=== PATIENT | female | born 1970 | race Caucasian/White ===

== ENCOUNTER → 2021-07-10 | Day surgery (SDC) | payer BC | END | disposition home or self-care (01) | LOC: FMAMMOTONE 12:06 | PROVIDERS: ATTEND Surgery | PROC: 0HBU3ZX Excision of Left Breast, Percutaneous Approach, Diagnostic (ICD-10-PCS; principal; 2021-07-10) | DX: Z53.8 Procedure and treatment not carried out for other reasons (principal); R92.0 Mammographic microcalcification found on diagnostic imaging of breast | CPT/HCPCS: 19081 ==

== ENCOUNTER 2022-01-13 04:41 | Day surgery (SDC) | payer BC ==
[2022-01-10 12:37] VITALS: BMI 25.4
[2022-01-13] MEDS ORDERED: LIDOCAINE HCL 1%, 10 MG/ML (20ML VIAL) ONE (09:01)
[2022-01-13] MEDS ORDERED: MIDAZOLAM HCL 2 MG/2 ML SINGLE DOSE VIAL ONE (10:30)
[2022-01-13] MEDS ORDERED: PROPOFOL 20 ML ONE ×5 (10:42→13:20)
[2022-01-13] MEDS ORDERED: ceFAZolin SODIUM 1 GM VIAL IVPB ONE (10:45)
[2022-01-13] MEDS ORDERED: ACETAMINOPHEN INJECTION 100 ML IVPB ONE (12:30)
[2022-01-13] MEDS ORDERED: oxyCODONE HCL 5 MG TABLET PO PRN (13:46)
[2022-01-13] MEDS ORDERED: ONDANSETRON 4 MG/2 ML VIAL IVPUSH PRN (13:46)
[2022-01-13] MEDS ORDERED: LACTATED RINGERS SOLUTION 1,000 ML IV SCH (14:00)
[2022-01-13] MEDS ORDERED: ONDANSETRON 4 MG/2 ML VIAL ONE (16:25)
[2022-01-13] MEDS ORDERED: oxyCODONE HCL 5 MG TABLET ONE ×2 (16:25→16:31)
[2022-01-13 18:25] VITALS: TEMP 97.8
[2022-01-13 18:33] VITALS: BP 108/58; PULSE 70
== END 2022-01-13 18:00 | disposition home or self-care (01) ==
LOC: J2C 04:41 → UNDOADMIN 04:41 → JASU-SURG 04:41 → EDSTATUS 08:30 → JASU-SURG 18:00
PROVIDERS: ATTEND Plastic Surgery
PROC: 0HBV0ZZ Excision of Bilateral Breast, Open Approach (ICD-10-PCS; principal; 2022-01-13 09:30)
PROC: 0HBV0ZZ Excision of Bilateral Breast, Open Approach (ICD-10-PCS; 2022-01-13 09:30)
DX: Z85.3 Personal history of malignant neoplasm of breast (principal); N60.91 Unspecified benign mammary dysplasia of right breast
CPT/HCPCS: 19281; 76098-TC-FY; 81025; 86850; 86900; 86901; 88307-TC; 88342-TC; 93005; 93010; 94760

== ENCOUNTER 2022-03-05 04:15 | Inpatient (IN) | payer BC ==
[2022-03-04 09:04] VITALS: BMI 25.2
[2022-03-05] MEDS ORDERED: fentaNYL CITRATE 250 MCG/5 ML VIAL ONE (11:22)
[2022-03-05] MEDS ORDERED: PROPOFOL 20 ML ONE ×5 (11:22→14:36)
[2022-03-05] MEDS ORDERED: MIDAZOLAM HCL 2 MG/2 ML SINGLE DOSE VIAL ONE (11:22)
[2022-03-05] MEDS ORDERED: SUCCINYLCHOLINE CHLORIDE 200 MG/10 ML SYRINGE ONE ×2 (11:22→12:30)
[2022-03-05] MEDS ORDERED: ceFAZolin SODIUM 1 GM VIAL IVPB ONE (12:05)
[2022-03-05] MEDS ORDERED: ISOSULFAN BLUE 50 MG/5 ML VIAL SQ ONE (12:21)
[2022-03-05] MEDS ORDERED: ePHEDrine SULFATE 50 MG/1 ML AMPULE ONE (13:10)
[2022-03-05] MEDS ORDERED: oxyCODONE HCL 5 MG TABLET PO PRN ×2 (15:25)
[2022-03-05] MEDS ORDERED: ONDANSETRON 4 MG/2 ML VIAL IVPUSH PRN (15:25)
[2022-03-05] MEDS ORDERED: ACETAMINOPHEN 1000 MG/100 ML BAG IVPB ONE (15:27)
[2022-03-05] MEDS ORDERED: LACTATED RINGERS SOLUTION 1,000 ML IV SCH (15:30)
[2022-03-05] MEDS ORDERED: ACETAMINOPHEN INJECTION 100 ML IVPB ONE (15:44)
[2022-03-05] MEDS ORDERED: ONDANSETRON 4 MG/2 ML VIAL ONE (17:13)
[2022-03-05] MEDS ORDERED: HYDROmorphone *PCA* 10MG/50ML DISP.SYRIN PCA SCH ×2 (18:30→21:00)
[2022-03-05] MEDS ORDERED: DEXTROSE 5%-WATER - 50 ML IVPB ONE (19:47)
[2022-03-05] MEDS ORDERED: ceFAZolin SODIUM 1 GM VIAL ONE (19:47)
[2022-03-05] MEDS: CEFAZOLIN 1 GM in DEXTROSE 5%-WATER - 50 ML IVPB SCH (19:54)
[2022-03-05] MEDS ORDERED: METOPROLOL TARTRATE 50 MG TABLET (FP) PO SCH (22:00)
[2022-03-06] MEDS ORDERED: ceFAZolin SODIUM 1 GM VIAL ONE ×2 (02:54→09:34)
[2022-03-06] MEDS ORDERED: DEXTROSE 5%-WATER - 50 ML IVPB ONE ×2 (02:54→09:34)
[2022-03-06] MEDS: CEFAZOLIN 1 GM in DEXTROSE 5%-WATER - 50 ML IVPB SCH ×2 (02:56→09:36)
[2022-03-06 03:12] VITALS: TEMP 98.1
[2022-03-06] MEDS ORDERED: ONDANSETRON 4 MG/2 ML VIAL IVPUSH PRN (08:51)
[2022-03-06 09:22] VITALS: PULSE 77
[2022-03-06 09:51] VITALS: BP 107/68
[2022-03-06] MEDS ORDERED: LORATADINE 10 MG TABLET PO SCH (10:00)
[2022-03-06] MEDS ORDERED: ACETAMINOPHEN 325 MG TABLET (FP) PO PRN ×2 (10:15)
[2022-03-06] MEDS ORDERED: oxyCODONE HCL 5 MG TABLET PO PRN ×2 (10:15)
== END 2022-03-06 12:22 | disposition home or self-care (01) | DRG 585 ==
LOC: J2C 04:15 → FM/S 10:31
PROVIDERS: ADMIT Surgery; ATTEND Surgery
PROC: 0HTV0ZZ Resection of Bilateral Breast, Open Approach (ICD-10-PCS; principal; 2022-03-05 11:00)
PROC: 0HHV0NZ Insertion of Tissue Expander into Bilateral Breast, Open Approach (ICD-10-PCS; 2022-03-05 11:00)
DX: Z40.01 Encounter for prophylactic removal of breast (principal); N60.92 Unspecified benign mammary dysplasia of left breast; N60.91 Unspecified benign mammary dysplasia of right breast; N60.22 Fibroadenosis of left breast; N60.12 Diffuse cystic mastopathy of left breast; N60.21 Fibroadenosis of right breast; N60.11 Diffuse cystic mastopathy of right breast
CPT/HCPCS: 81025; 82962; 86850; 86900; 86901; 88304-TC; 88309-TC; 94760

== ENCOUNTER 2022-07-22 05:23 | Day surgery (SDC) | payer BC ==
[2022-07-18 12:21] VITALS: BMI 25.7
[2022-07-22] MEDS ORDERED: PROPOFOL 20 ML ONE ×3 (07:22→09:36)
[2022-07-22] MEDS ORDERED: SEVOFLURANE 250 ML BTL ONE (07:24)
[2022-07-22] MEDS ORDERED: LIDOCAINE HCL/PF 2% SDV 5ML VIAL ONE (07:24)
[2022-07-22] MEDS ORDERED: MIDAZOLAM HCL 2 MG/2 ML SINGLE DOSE VIAL ONE (07:25)
[2022-07-22] MEDS ORDERED: SCOPOLAMINE HYDROBROMIDE 1 PATCH PATCH.TD72 ONE (07:33)
[2022-07-22] MEDS ORDERED: DEXMEDETOMIDINE HCL 200 MCG/2 ML IVPB ONE (07:47)
[2022-07-22] MEDS ORDERED: PROPOFOL 60 ML ONE (07:50)
[2022-07-22] MEDS ORDERED: PROMETHAZINE HCL 25 MG/1 ML VIAL ONE (07:57)
[2022-07-22] MEDS ORDERED: FAMOTIDINE 20 MG/50 ML IVPB 20 MG/50 ML MG IVPB ONE (08:02)
[2022-07-22] MEDS ORDERED: ceFAZolin SODIUM 1 GM VIAL ONE (08:41)
[2022-07-22] MEDS ORDERED: ceFAZolin SODIUM 1 GM VIAL IVPB ONE (08:42)
[2022-07-22] MEDS ORDERED: KETAMINE HCL 200 MG/20 ML VIAL ONE (08:51)
[2022-07-22] MEDS ORDERED: ACETAMINOPHEN INJECTION 100 ML IVPB ONE (09:00)
[2022-07-22] MEDS ORDERED: oxyCODONE HCL 5 MG TABLET PO PRN ×2 (09:09)
[2022-07-22] MEDS ORDERED: ONDANSETRON 4 MG/2 ML VIAL IVPUSH PRN (09:09)
[2022-07-22] MEDS ORDERED: LACTATED RINGERS SOLUTION 1,000 ML IV SCH (09:15)
[2022-07-22] MEDS ORDERED: SUGAMMADEX SODIUM 200 MG/2 ML VIAL ONE (09:21)
[2022-07-22 12:21] VITALS: RESP 18
[2022-07-22 13:24] VITALS: BP 110/67; PULSE 60; TEMP 97.4
== END 2022-07-22 13:00 | disposition home or self-care (01) ==
LOC: JASU-SURG 05:23
PROVIDERS: ATTEND Plastic Surgery
PROC: 0HNV0ZZ Release Bilateral Breast, Open Approach (ICD-10-PCS; principal; 2022-07-22 08:00)
DX: Z90.13 Acquired absence of bilateral breasts and nipples (principal); Z85.3 Personal history of malignant neoplasm of breast
CPT/HCPCS: 11970; 19380; L8699; 94760

== ENCOUNTER 2025-01-06 06:20 | Day surgery (SDC) | payer BC ==
[2025-01-03 13:16] VITALS: BMI 26.1
[2025-01-06] MEDS ORDERED: PROPOFOL 120 ML ONE (07:34)
[2025-01-06] MEDS ORDERED: MIDAZOLAM HCL 2 MG/2 ML SINGLE DOSE VIAL ONE (07:34)
[2025-01-06] MEDS ORDERED: SUCCINYLCHOLINE CHLORIDE 200 MG/10 ML SYRINGE ONE ×2 (07:48→10:18)
[2025-01-06] MEDS ORDERED: FAMOTIDINE 20 MG/50 ML IVPB 20 MG/50 ML MG IVPB ONE (07:54)
[2025-01-06] MEDS ORDERED: ACETAMINOPHEN INJECTION 100 ML ONE (07:54)
[2025-01-06] MEDS ORDERED: SCOPOLAMINE HYDROBROMIDE 1 PATCH PATCH.TD72 ONE (07:54)
[2025-01-06] MEDS ORDERED: PROPOFOL 60 ML ONE (09:29)
[2025-01-06] MEDS ORDERED: PROMETHAZINE HCL 25 MG/1 ML VIAL IVPB PRN (10:10)
[2025-01-06] MEDS ORDERED: ONDANSETRON 4 MG/2 ML VIAL IVPUSH PRN (10:10)
[2025-01-06] MEDS ORDERED: LACTATED RINGERS SOLUTION 1,000 ML IV SCH (10:15)
[2025-01-06 11:10] VITALS: RESP 18; TEMP 97.1
[2025-01-06] MEDS: oxyCODONE HCL 5 MG TABLET PO PRN (11:10)
[2025-01-06] MEDS ORDERED: oxyCODONE HCL 5 MG TABLET ONE (11:12)
[2025-01-06 12:03] VITALS: BP 102/54; PULSE 52
== END 2025-01-06 12:00 | disposition home or self-care (01) ==
LOC: FASU 06:20
PROVIDERS: ATTEND Plastic Surgery
PROC: 0HWU0JZ Revision of Synthetic Substitute in Left Breast, Open Approach (ICD-10-PCS; principal; 2025-01-06 08:29)
PROC: 0HWT0JZ Revision of Synthetic Substitute in Right Breast, Open Approach (ICD-10-PCS; 2025-01-06 08:29)
DX: Z90.13 Acquired absence of bilateral breasts and nipples (principal); T85.42XA Displacement of breast prosthesis and implant, initial encounter; Y82.8 Other medical devices associated with adverse incidents; Y92.9 Unspecified place or not applicable
CPT/HCPCS: 15777; 19342; 19380; L8600; 81025; 88300-TC; 94760; J0131; Q4116